=== PATIENT | male | born 1955 | race Hispanic/Latino ===

== ENCOUNTER → 2024-12-01 | Outpatient (CLI) | payer OTHER ==
[2024-12-01 22:21] VITALS: PULSE 86; RESP 10
[2024-12-01 22:53] VITALS: PULSE 84; RESP 10
[2024-12-01 23:33] VITALS: PULSE 81; RESP 12
[2024-12-02] VITALS (11 sets, daily range): PULSE 75–81; RESP 12
== END | disposition home or self-care (01) ==
LOC: SLP 19:41
PROVIDERS: ATTEND Internal Medicine Pulmonary Disease
DX: G47.33 Obstructive sleep apnea (adult) (pediatric) (principal); G47.10 Hypersomnia, unspecified; R06.83 Snoring; I10 Essential (primary) hypertension; E11.9 Type 2 diabetes mellitus without complications; R45.1 Restlessness and agitation; F32.A Depression, unspecified; N52.9 Male erectile dysfunction, unspecified; E66.9 Obesity, unspecified; R35.1 Nocturia
CPT/HCPCS: 95810

== ENCOUNTER → 2024-12-16 | Outpatient (CLI) | payer OTHER ==
[2024-12-16] VITALS (7 sets, daily range): PULSE 69–80; RESP 11–15
[2024-12-17] VITALS (14 sets, daily range): PULSE 66–75; RESP 10–18
== END | disposition home or self-care (01) ==
LOC: EDUNIT# 12-02 20:30 → SLP 20:12
PROVIDERS: ATTEND Internal Medicine Pulmonary Disease
DX: G47.33 Obstructive sleep apnea (adult) (pediatric) (principal); R06.83 Snoring; G47.10 Hypersomnia, unspecified
CPT/HCPCS: 95811